=== PATIENT | female | born 1945 | race Two or more races ===

== ENCOUNTER 2021-07-22 14:15 | Outpatient (CLI) | payer OTHER | END 2021-07-22 14:35 | disposition home or self-care (01) | LOC: PPH VACUNA 14:15 | PROVIDERS: ATTEND Emergency Medicine Pediatric Emergency Medicine | DX: Z23 Encounter for immunization (principal) ==

== ENCOUNTER 2021-11-27 10:47 | Outpatient (CLI) | payer OTHER | END 2021-11-27 10:48 | disposition home or self-care (01) | LOC: NUCLEAR 10:47 | PROVIDERS: ATTEND Internal Medicine | DX: M54.59 Other low back pain (principal); E03.9 Hypothyroidism, unspecified; F32.9 Major depressive disorder, single episode, unspecified; I11.9 Hypertensive heart disease without heart failure; F39 Unspecified mood [affective] disorder; F32.0 Major depressive disorder, single episode, mild; R10.13 Epigastric pain; K31.84 Gastroparesis; K52.0 Gastroenteritis and colitis due to radiation; L13.0 Dermatitis herpetiformis; B02.23 Postherpetic polyneuropathy; M12.00 Chronic postrheumatic arthropathy [Jaccoud], unspecified site ==

== ENCOUNTER 2021-12-01 08:57 | Outpatient (CLI) | payer OTHER | END 2021-12-01 09:39 | disposition home or self-care (01) | LOC: MAMO-SONO 08:57 | PROVIDERS: ATTEND Internal Medicine | DX: N60.11 Diffuse cystic mastopathy of right breast (principal); N60.12 Diffuse cystic mastopathy of left breast ==

== ENCOUNTER 2021-12-03 07:32 | Outpatient (CLI) | payer OTHER | END 2021-12-03 07:45 | disposition home or self-care (01) | LOC: LAB 07:32 | PROVIDERS: ATTEND Internal Medicine | DX: Z12.11 Encounter for screening for malignant neoplasm of colon (principal); Z13.820 Encounter for screening for osteoporosis; M54.50 Low back pain, unspecified; E03.9 Hypothyroidism, unspecified; F32.9 Major depressive disorder, single episode, unspecified; I11.9 Hypertensive heart disease without heart failure; F39 Unspecified mood [affective] disorder; F32.0 Major depressive disorder, single episode, mild; R10.13 Epigastric pain; K31.84 Gastroparesis; K52.0 Gastroenteritis and colitis due to radiation; L13.0 Dermatitis herpetiformis; B02.23 Postherpetic polyneuropathy; M12.00 Chronic postrheumatic arthropathy [Jaccoud], unspecified site; Z12.31 Encounter for screening mammogram for malignant neoplasm of breast; N64.89 Other specified disorders of breast; E55.9 Vitamin D deficiency, unspecified; N39.0 Urinary tract infection, site not specified; N60.11 Diffuse cystic mastopathy of right breast; N60.12 Diffuse cystic mastopathy of left breast ==

== ENCOUNTER 2022-03-03 09:21 | Outpatient (CLI) | payer OTHER | END 2022-03-03 09:33 | disposition home or self-care (01) | LOC: LAB 09:21 | PROVIDERS: ATTEND Internal Medicine | DX: M54.50 Low back pain, unspecified (principal); E03.9 Hypothyroidism, unspecified; F32.9 Major depressive disorder, single episode, unspecified; I11.9 Hypertensive heart disease without heart failure; F39 Unspecified mood [affective] disorder; F32.0 Major depressive disorder, single episode, mild; R10.13 Epigastric pain; K31.84 Gastroparesis; K52.0 Gastroenteritis and colitis due to radiation; L13.0 Dermatitis herpetiformis; B02.23 Postherpetic polyneuropathy; M12.00 Chronic postrheumatic arthropathy [Jaccoud], unspecified site; N64.89 Other specified disorders of breast; E55.9 Vitamin D deficiency, unspecified; N39.0 Urinary tract infection, site not specified; N60.11 Diffuse cystic mastopathy of right breast; N60.12 Diffuse cystic mastopathy of left breast; Z12.11 Encounter for screening for malignant neoplasm of colon; Z13.820 Encounter for screening for osteoporosis ==

== ENCOUNTER 2022-12-31 10:38 | Outpatient (CLI) | payer OTHER | END 2022-12-31 10:46 | disposition home or self-care (01) | LOC: LAB 10:38 | PROVIDERS: ATTEND Internal Medicine | DX: Z12.11 Encounter for screening for malignant neoplasm of colon (principal); M54.50 Low back pain, unspecified; E03.9 Hypothyroidism, unspecified; F32.9 Major depressive disorder, single episode, unspecified; I11.9 Hypertensive heart disease without heart failure; F39 Unspecified mood [affective] disorder; F32.0 Major depressive disorder, single episode, mild; R10.13 Epigastric pain; K31.84 Gastroparesis; K52.0 Gastroenteritis and colitis due to radiation; L13.0 Dermatitis herpetiformis; B02.23 Postherpetic polyneuropathy; M12.00 Chronic postrheumatic arthropathy [Jaccoud], unspecified site; Z12.31 Encounter for screening mammogram for malignant neoplasm of breast; N64.89 Other specified disorders of breast; E55.9 Vitamin D deficiency, unspecified; N39.0 Urinary tract infection, site not specified; N60.11 Diffuse cystic mastopathy of right breast; N60.12 Diffuse cystic mastopathy of left breast; M62.40 Contracture of muscle, unspecified site; S80.12XD Contusion of left lower leg, subsequent encounter; S20.00XA Contusion of breast, unspecified breast, initial encounter; S80.12XS Contusion of left lower leg, sequela; Z13.820 Encounter for screening for osteoporosis ==